=== PATIENT | male | born 1980 | race Hispanic/Latino ===

== ENCOUNTER 2022-02-22 07:13 | Emergency (ER) | payer OTHER ==
--- OUTSIDE RECORDS SUMMARY | 2022-02-22 07:16 | XMS REPORT | Continuity of Care Document ---
:1980 Author Organization [facility] t Address [address] [place] [address] [address] [place] [address] Care Team Providers Name Role Phone Dain Corona Lainez Primary Care Physician LINDA_Gurinder Attending Clinician Unavailable Alexis Mckeon Attending Clinician [phone] Minerva Kern RN Attending Clinician Unavailable Only, Ang Db Test Attending Clinician Unavailable Angely Morales MD Attending Clinician Nydia Aguiar Attending Clinician CHERYL HANNA Attending Clinician Unavailable Lab, Adc Fam Pob I Attending Clinician Unavailable Giovanna Levine Attending Clinician GIOVANNA ARRIOLA Attending Clinician Unavailable Kimberly Mcmanus Attending Clinician KIMBERLY CORLEY Attending Clinician Unavailable LINDA_Gurinder Admitting Clinician Unavailable Payers Payer Name Policy Type Policy Number Effective Date Expiration Date S [facility] [id number] (PPO) Problems Condition Condition Condition Status Onset Resolution Last Treating Co mments Source Name Details Category Date Date Treatment Clinician Date Other Other Disease Active Univers malaise malaise 6-17 ity of and and 00:00: [place] fatigue fatigue 00 Medical Branch Screening Screening Disease Active Uni vers for other for other 6-17 ity of and and 00:00: [place] unspecifie unspecifie 00 Me dical d d Branch endocrine, endocrine, nutritiona nutritiona l, l, metabolic, metabolic, and and immunity immunity disorders disorders Loss of Loss of Disease Active Univers weight weight 09-04 ity of 00:00: [place] [facility] [place] Obesity Obesity Disease Active Overview: Univ ers 09-04 Formattin ity of 00:00: g of this note Medical might be Branch different from the original. ICD10 Diagnosis Term Front Counter Clerk Utility Allergies, Adverse Reactions, Alerts Allergy Allergy Status Severity Reaction(s) Onset Inactive Treating Comm ents Source Name Type Date Date Clinician NO KNOWN Drug Active Univers ALLERGIE Class ity of S [facility] Social History Social Habit Start Date Stop Date Quantity Comments Source Exposure to Yes [facility] SARS-CoV-2 [facility] (event) Branch Alcohol intake 2012-09-04 2012-09-04 Current University of 00:00:00 00:00:00 non-drinker of [facility] alcohol Branch (finding) Sex Ass[birth year] At [birth year] Universit y of 00:00:00 00:00:00 [facility] Smoking Status Start Date Stop Date Source Never Smoker [facility] Medications Ordered Filled Start Stop Current Ordering Indication Dosage Frequency Signature Comments Components Source Medication Medication Date Date Medication? Clinician (SIG) Name Name B12 1ml IM B12 1ml IM 2020-03 No B12 1ml IM [place] Q weekly Q weekly 2-21 Q weekly Com [facility] Yes Take by [facility] ers (KEFLEX 6-30 mouth. ity of ORAL) 12:17: [address] CEPHALEXIN Yes Take by [facility] ers (KEFLEX 6-30 mouth. ity of ORAL) 12:17: [address] CEPHALEXIN Yes Take by [facility] ers (KEFLEX 6-30 mouth. ity of ORAL) 12:17: [address] CEPHALEXIN Yes Take by [facility] ers (KEFLEX 6-30 mouth. ity of ORAL) 12:17: [address] CEPHALEXIN Yes Take by [facility] ers (KEFLEX 6-30 mouth. ity of ORAL) 12:17: [address] CEPHALEXIN Yes Take by [facility] ers (KEFLEX 6-30 mouth. ity of ORAL) 12:17: [place] 09 Medical Branch acetaminoph 2017-0 Yes 1{tbl} Take 1 Un marcos en-codeine 6-30 tablet by ity of 300-30 mg 00:00: mouth [place] tablet 00 every 6 Medical (six) Branch hours as needed for Pain (scale 4-6) for up to 20 doses. proMETHazin 2017-0 Yes 25mg Take 1 Univ ers e 25 mg 6-30 tablet by ity of tablet 00:00: mouth [place] 00 every 6 Medical (six) Branch hours as needed for Nausea and Vomiting (N/V) for up to 12 doses. tamsulosin 2017-0 Yes .4mg Take 1 Unive rs 0.4 mg 24 6-30 capsule by ity of hr capsule 00:00: mouth at [place] as 00 bedtime. Medical Branch acetaminoph 2017-0 Yes 1{tbl} Take 1 Un marcos en-codeine 6-30 tablet by ity of 300-30 mg 00:00: mouth [place] tablet 00 every 6 Medical (six) Branch hours as needed for Pain (scale 4-6) for up to 20 doses. proMETHazin 2017-0 Yes 25mg Take 1 Univ ers e 25 mg 6-30 tablet by ity of tablet 00:00: mouth [place] 00 every 6 Medical (six) Branch hours as needed for Nausea and Vomiting (N/V) for up to 12 doses. tamsulosin 2017-0 Yes .4mg Take 1 Unive rs 0.4 mg 24 6-30 capsule by ity of hr capsule 00:00: mouth at [place] as 00 bedtime. Medical Branch acetaminoph 2017-0 Yes 1{tbl} Take 1 Un marcos en-codeine 6-30 tablet by ity of 300-30 mg 00:00: mouth [place] tablet 00 every 6 Medical (six) Branch hours as needed for Pain (scale 4-6) for up to 20 doses. proMETHazin 2017-0 Yes 25mg Take 1 Univ ers e 25 mg 6-30 tablet by ity of tablet 00:00: mouth [place] 00 every 6 Medical (six) Branch hours as needed for Nausea and Vomiting (N/V) for up to 12 doses. tamsulosin 2017-0 Yes .4mg Take 1 Unive rs 0.4 mg 24 6-30 capsule by ity of hr capsule 00:00: mouth at [place] as 00 bedtime. Medical Branch acetaminoph 2017-0 Yes 1{tbl} Take 1 Un marcos en-codeine 6-30 tablet by ity of 300-30 mg 00:00: mouth [place] tablet 00 every 6 Medical (six) Branch hours as needed for Pain (scale 4-6) for up to 20 doses. proMETHazin 2017-0 Yes 25mg Take 1 Univ ers e 25 mg 6-30 tablet by ity of tablet 00:00: mouth [place] 00 every 6 Medical (six) Branch hours as needed for Nausea and Vomiting (N/V) for up to 12 doses. tamsulosin 2017-0 Yes .4mg Take 1 Unive rs 0.4 mg 24 6-30 capsule by ity of hr capsule 00:00: mouth at [place] as 00 bedtime. Medical Branch acetaminoph 2017-0 Yes 1{tbl} Take 1 Un marcos en-codeine 6-30 tablet by ity of 300-30 mg 00:00: mouth [place] tablet 00 every 6 Medical (six) Branch hours as needed for Pain (scale 4-6) for up to 20 doses. proMETHazin 2017-0 Yes 25mg Take 1 Univ ers e 25 mg 6-30 tablet by ity of tablet 00:00: mouth [place] 00 every 6 Medical (six) Branch hours as needed for Nausea and Vomiting (N/V) for up to 12 doses. tamsulosin 2017-0 Yes .4mg Take 1 Unive rs 0.4 mg 24 6-30 capsule by ity of hr capsule 00:00: mouth at [place] as 00 bedtime. Medical Branch acetaminoph 2017-0 Yes 1{tbl} Take 1 Un marcos en-codeine 6-30 tablet by ity of 300-30 mg 00:00: mouth [place] tablet 00 every 6 Medical (six) Branch hours as needed for Pain (scale 4-6) for up to 20 doses. proMETHazin 2017-0 Yes 25mg Take 1 Univ ers e 25 mg 6-30 tablet by ity of tablet 00:00: mouth [place] 00 every 6 Medical (six) Branch hours as needed for Nausea and Vomiting (N/V) for up to 12 doses. tamsulosin 2017-0 Yes .4mg Take 1 Unive rs 0.4 mg 24 6-30 capsule by ity of hr capsule 00:00: mouth at [place] as 00 bedtime. Medical Branch esomeprazol Yes 20mg Take 20 mg Univers e (NEXIUM) 6-17 by mouth ity o f 20 mg 18:33: daily [place] capsule 05 before a Medical meal. Branch esomeprazol Yes 20mg Take 20 mg Univers e (NEXIUM) 6-17 by mouth ity o f 20 mg 18:33: daily [place] capsule 05 before a Medical meal. Branch esomeprazol Yes 20mg Take 20 mg Univers e (NEXIUM) 6-17 by mouth ity o f 20 mg 18:33: daily [place] capsule 05 before a Medical meal. Branch esomeprazol Yes 20mg Take 20 mg Univers e (NEXIUM) 6-17 by mouth ity o f 20 mg 18:33: daily [place] capsule 05 before a Medical meal. Branch esomeprazol Yes 20mg Take 20 mg Univers e (NEXIUM) 6-17 by mouth ity o f 20 mg 18:33: daily [place] capsule 05 before a Medical meal. Branch esomeprazol Yes 20mg Take 20 mg Univers e (NEXIUM) 6-17 by mouth ity o f 20 mg 18:33: daily [place] capsule 05 before a Medical meal. Branch colchicine colchicine No colchicine [place] 0.6 mg 0.6 mg 0.6 mg Communi tablet TAKE tablet TAKE tablet ty ONE (1) ONE (1) TAKE ONE Hospi ta TABLET(S) TABLET(S) (1) l BY MOUTH BY MOUTH TABLET(S) Cl inics THREE TIMES THREE TIMES BY MOUTH A DAY. A DAY. THREE TIMES A DAY. diazepam 5 diazepam 5 No diazepam 5 [place] mg tablet mg tablet mg tablet Communi TAKE 1 TAKE 1 TAKE 1 ty TABLET BY TABLET BY TABLET BY Hospita MOUTH AT MOUTH AT MOUTH AT l BEDTIME BEDTIME BEDTIME Clinic s rosuvastati rosuvastati No rosuvastat [place] n 5 mg n 5 mg in 5 mg Communi tablet TAKE tablet TAKE tablet ty 1 TABLET BY 1 TABLET BY TAKE 1 Hospita MOUTH EVERY MOUTH EVERY TABLET BY l EVENING EVENING MOUTH Clinics EVERY EVENING tadalafil tadalafil No tadalafil [place] 20 mg 20 mg 20 mg Communi tablet tablet tablet ty (pulmonary (pulmonary (pulmonary Hospita hypertensio hypertensio hypertensi l n) TAKE ONE n) TAKE ONE on) TAKE Clinics (1) (1) ONE (1) TABLET(S) TABLET(S) TABLET(S) BY MOUTH BY MOUTH BY MOUTH ONCE A DAY ONCE A DAY ONCE A DAY NEEDED. NEEDED. NEEDED. allopurinol allopurinol No allopurino [place] 300 mg 300 mg l 300 mg Communi tablet TAKE tablet TAKE tablet ty ONE (1) ONE (1) TAKE ONE Hospi ta TABLET(S) TABLET(S) (1) l BY MOUTH BY MOUTH TABLET(S) Cl inics EVERY EVERY BY MOUTH MORNING. MORNING. EVERY MORNING. cefuroxime cefuroxime No cefuroxime [place] axetil 500 axetil 500 axetil 500 Communi mg tablet mg tablet mg tablet ty TAKE 1 TAKE 1 TAKE 1 Hospita TABLET BY TABLET BY TABLET BY l MOUTH TWICE MOUTH TWICE MOUTH Clinics DAILY DAILY TWICE DAILY cholecalcif cholecalcif No cholecalci [place] marbella marbella ferol Communi (vitamin (vitamin (vitamin ty D3) 1,250 D3) 1,250 D3) 1,250 Hospita mcg (50,000 mcg (50,000 mcg l unit) unit) (50,000 Clinics capsule capsule unit) TAKE ONE TAKE ONE capsule CAPSULE BY CAPSULE BY TAKE ONE MOUTH EVERY MOUTH EVERY CAPSULE BY WEEK WEEK MOUTH EVERY WEEK colchicine colchicine No colchicine [place] 0.6 mg 0.6 mg 0.6 mg Communi tablet TAKE tablet TAKE tablet ty ONE (1) ONE (1) TAKE ONE Hospi ta TABLET(S) TABLET(S) (1) l BY MOUTH BY MOUTH TABLET(S) Cl inics THREE TIMES THREE TIMES BY MOUTH A DAY. A DAY. THREE TIMES A DAY. diazepam 5 diazepam 5 No diazepam 5 [place] mg tablet mg tablet mg tablet Communi TAKE 1 TAKE 1 TAKE 1 ty TABLET BY TABLET BY TABLET BY Hospita MOUTH AT MOUTH AT MOUTH AT l BEDTIME BEDTIME BEDTIME Clinic s metformin metformin No metformin [place] 500 mg 500 mg 500 mg Communi tablet TAKE tablet TAKE tablet ty 1 TABLET BY 1 TABLET BY TAKE 1 Hospita MOUTH TWICE MOUTH TWICE TABLET BY l DAILY DAILY MOUTH Clinics TWICE DAILY rosuvastati rosuvastati No rosuvastat [place] n 5 mg n 5 mg in 5 mg Communi tablet TAKE tablet TAKE tablet ty 1 TABLET BY 1 TABLET BY TAKE 1 Hospita MOUTH EVERY MOUTH EVERY TABLET BY l EVENING EVENING MOUTH Clinics EVERY EVENING tadalafil tadalafil No tadalafil [place] 20 mg 20 mg 20 mg Communi tablet tablet tablet ty (pulmonary (pulmonary (pulmonary Hospita hypertensio hypertensio hypertensi l n) TAKE ONE n) TAKE ONE on) TAKE Clinics (1) (1) ONE (1) TABLET(S) TABLET(S) TABLET(S) BY MOUTH BY MOUTH BY MOUTH ONCE A DAY ONCE A DAY ONCE A DAY NEEDED. NEEDED. NEEDED. testosteron testosteron No 12pelle testostero [place] e 200 mg e 200 mg t(s) ne 200 mg Co mmuni implant implant implant ty pellet Take pellet Take pellet Hospita 12 pellets 12 pellets Take 12 l by by pellets by Clinics implantatio implantatio implantati n route. n route. on route. allopurinol allopurinol No allopurino [place] 300 mg 300 mg l 300 mg Communi tablet TAKE tablet TAKE tablet ty ONE (1) ONE (1) TAKE ONE Hospi ta TABLET(S) TABLET(S) (1) l BY MOUTH BY MOUTH TABLET(S) Cl inics EVERY EVERY BY MOUTH MORNING. MORNING. EVERY MORNING. cefuroxime cefuroxime No cefuroxime [place] axetil 500 axetil 500 axetil 500 Communi mg tablet mg tablet mg tablet ty TAKE 1 TAKE 1 TAKE 1 Hospita TABLET BY TABLET BY TABLET BY l MOUTH TWICE MOUTH TWICE MOUTH Clinics DAILY DAILY TWICE DAILY Immunizations Ordered Filled Immunization Date Status Comments [facility] e Immunization Name Name SARS-COV-2 COVID-19 2020-06-17 Completed Unive rsity of PFIZER VACCINE 00:00:00 [facility] SARS-COV-2 COVID-19 2020-06-17 Completed Unive rsity of PFIZER VACCINE 00:00:00 [facility] SARS-COV-2 COVID-19 2020-06-17 Completed Unive rsity of PFIZER VACCINE 00:00:00 [facility] SARS-COV-2 COVID-19 2020-06-17 Completed Unive rsity of PFIZER VACCINE 00:00:00 [facility] SARS-COV-2 COVID-19 2020-05-27 Completed Unive rsity of PFIZER VACCINE 00:00:00 [facility] SARS-COV-2 COVID-19 2020-05-27 Completed Unive rsity of PFIZER VACCINE 00:00:00 [facility] SARS-COV-2 COVID-19 2020-05-27 Completed Unive rsity of PFIZER VACCINE 00:00:00 [facility] SARS-COV-2 COVID-19 2020-05-27 Completed Unive rsity of PFIZER VACCINE 00:00:00 [facility] Vital Signs Vital Name Observation Time Observation Value Comments Source BP Diastolic 2021-03-17 00:00:00 96 mm[Hg] [facility] Height 2021-03-17 00:00:00 72 [in_i] [facility] s BMI (Body Mass 2021-03-17 00:00:00 45.6 kg/m2 [facility] BP Systolic 2021-03-17 00:00:00 159 mm[Hg] [facility] s Body Weight 2021-03-17 00:00:00 5376 [oz_av] [facility] s BP Diastolic 2021-02-17 00:00:00 92 mm[Hg] [facility] s Height 2021-02-17 00:00:00 72 [in_i] [facility] s BMI (Body Mass 2021-02-17 00:00:00 44.8 kg/m2 [facility] BP Systolic 2021-02-17 00:00:00 143 mm[Hg] [facility] s Body Weight 2021-02-17 00:00:00 5280 [oz_av] [facility] s Procedures This patient has no known procedures. Plan of Care Planned Activity Planned Date Details Comments Source Diagnostic Test 2021-02-17 estradiol, serum [facility] Pending 00:00:00 [code = estradiol, [facility] serum] Diagnostic Test 2021-02-17 testosterone, free + [facility] Pending 00:00:00 total, serum [code = [facility] testosterone, free + total, serum] Diagnostic Test 2021-02-17 TSH + free T4, serum [facility] Pending 00:00:00 [code = TSH + free Hospital Clinics T4, serum] Diagnostic Test 2021-02-17 T3, free, serum or [place] [facility] Pending 00:00:00 plasma [code = T3, Hospital Clinics free, serum or plasma] Diagnostic Test 2021-02-17 thyroid peroxidase [place] [facility] Pending 00:00:00 (tpo) Ab, serum Hospital Cli nics [code = thyroid peroxidase (tpo) Ab, serum] Diagnostic Test 2021-02-17 vitamin D, [place] [facility] Pending 00:00:00 25-hydroxy, total, Hospital Clinics serum [code = vitamin D, 25-hydroxy, total, serum] Diagnostic Test 2021-02-17 vitamin B12 + [place] [facility] Pending 00:00:00 folate, serum or Hospital Cl inics blood [code = vitamin B12 + folate, serum or blood] Diagnostic Test 2021-02-17 CBC w/ auto diff [place] [facility] Pending 00:00:00 [code = CBC w/ auto Hospital Clinics diff] Diagnostic Test 2021-02-17 CMP, serum or plasma [facility] Pending 00:00:00 [code = CMP, serum Hospital Clinics or plasma] Diagnostic Test 2021-02-17 PSA, serum or plasma [facility] Pending 00:00:00 [code = PSA, serum Hospital Clinics or plasma] Encounters Start End Encounter Admission Attending Care Care Encounter Source Date/Time Date/Time Type Type Clinicians Facility Department ID 2021-07-02 Outpatient [facility] [id number] Common 13:19:02 [id number] [facility] 2021-05-23 2021-05-23 Outpatient [facility] [id number] [place] 02:27:00 02:27:00 0305 [facility] i [facility] 2021-05-15 2021-05-15 Outpatient [facility] [id number] [place] 06:52:00 06:52:00 0225 Commun i ty [facility] 2021-04-18 2021-04-18 Outpatient [facility] [id number] [place] 04:47:00 04:47:00 0129 Commun i ty Hospita [facility] Clinics 2021-03-17 2021-03-17 Outpatient SISSON_Gurinder [facility] 2020 [place] 02:58:00 02:58:00 1228 Commun i ty Hospita l Clinics 2021-03-17 2021-03-17 Outpatient Linda [facility] [id number] 00:00:00 00:00:00 Alexis [id number] 2021-03-17 [facility] [place] [id number] [place] 00:00:00 00:00:00 Linda, [facility] MSN, CADET DECK, Hospital - ty LABORER-C: [address] [place] [facility] [address], [facility] [address], [place]Lizandro [place], [place] MSN, LABORER-C [id number] , Ph. 2021-03-14 2021-03-14 Outpatient AJITHSON_Gurinder [facility] 2020 [place] 03:02:00 03:02:00 1225 Commun i ty Hospita l Clinics 2021-03-10 2021-03-10 Outpatient SISSON_Gurinder [facility] 2020 [place] 02:52:00 02:52:00 1221 Commun i ty Hospita l Clinics 2021-03-10 2021-03-10 [facility] [place] [id number] [place] 00:00:00 00:00:00 Linda [facility] MSN, CADET DECK, Hospital - ty LABORER-C: [address] [place] [facility] [address], [facility] [address], [place]Liz[place], [place] MSN, LABORER-C [id number] , Ph. 2021-02-17 2021-02-17 Outpatient [facility]C [facility] 2020 [place] 03:55:00 03:55:00 1130 Commun i ty Hospita l Clinics 2021-02-17 2021-02-17 [facility] [id number] [place] 00:00:00 00:00:00 Linda, [facility] MSN, CADET DECK, Hospital - ty LABORER-C: [address] [place] [facility] [address], [facility] [address], Linda [place], [place] MSN, LABORER-C [id number] , Ph. 2021-02-17 2021-02-17 [id number] 00:00:00 00:00:00 Alexis [id number] 2021-01-28 2021-01-28 [facility] [id number] [place] 04:05:00 04:05:00 1110 Commun i ty Hospita l Clinics 2020-11-24 2020-11-24 Telephone MARVIN Kern [id number] Univers 00:00:00 00:00:00 Minerva WEIR [id number] i ty [facility] [id number] [place] [id number] [address] 2020-11-23 2020-11-23 Laboratory Only, Ang Db Test [facility] 1.2.8 [id number] [id number] Univers 18:03:32 18:12:28 Only Andrew Angely [employer] [id number] [place] [id number] Joanthan as Timmy?Blea [phone] Ne dical [facility] [address] [place] [facility] 2020-11-23 2020-11-23 Outpatient R [facility] [id number] Univers 13:15:00 13:15:00 ity [facility] 2020-11-22 2020-11-22 Laboratory Only, Ang Db Test [facility] 1.2.8 40.114 [id number] Univers 12:16:55 12:26:55 Only Johnathan Nydia [facility] [id number] [place] [id number] [place] Timmy?Blea [phone] Ne dical kney [address] [facility] 2020-11-22 2020-11-22 Outpatient R [facility] [id number] Univers 12:20:00 12:20:00 ity [facility] 2020-06-17 2020-06-17 Outpatient R CYNDI [facility] [id number] Univers 11:20:00 11:20:00 CHERYL ity [facility] 2020-05-27 2020-05-27 Outpatient R CYNDI [facility] [id number] Univers 10:50:00 10:50:00 CHERYL ity [facility] 2020-05-27 2020-05-27 Outpatient R CYNDI [facility] [id number] Univers 10:50:00 10:50:00 [facility] 2020-05-18 Outpatient R CYNDI [facility] [id number] Univers 13:35:00 13:35:00 CHERYL [facility] 2020-04-14 2020-04-14 Laboratory Lab, [facility] 1.2. [id number] [id number] Univers 09:37:21 09:57:21 Only Lorraine [facility] [id number] [place] [id number] [place] as Professio [phone] Ne dical nal 044 [facility] 2020-04-14 2020-04-14 Outpatient R LORRAINE [facility] [id number] Univers 09:40:00 09:40:00 GIOVANNA ity [facility] 2019-10-02 2019-10-02 Laboratory Lab, [facility] 1.2. [id number] [id number] Univers 11:05:46 11:25:46 Only Barney [facility] [id number] [place] [id number] [place] as Professio [phone] Ne dical nal 044 [facility] 2019-10-02 2019-10-02 Outpatient R BARNEY [facility] [id number] Univers 11:00:00 11:00:00 KIMBERLY ity [facility] 2019-10-02 2019-10-02 Nhi CORLEY [facility] [id number] Univers 11:00:00 11:00:00 KIMBERLY jeter [facility] Results This patient has no known results.
[2022-02-22] MEDS ORDERED: NA CHLORIDE 0.9% 1,000 ML ONE (08:03)
[2022-02-22 08:27] LABS: Urine Blood Negative (Negative); Urine Glucose Negative (Negative); Urine Protein Negative (Negative); Urine Specific Gravity 1.015 (1.005-1.030)
[2022-02-22 08:52] LABS: Absolute Lymphocytes (CBC) 2.9 K/uL (0.7-4.9); Hematocrit 42.8 % (39.6-49.0); Lymphocytes % 40.8 % (15.3-44.8); MCV 92.5 fL (80-100); MPV 8.7 fL (7.6-11.3); RBC Red Blood Cell Count 4.63 M/uL (4.33-5.43)
[2022-02-22 09:08] LABS: Albumin 4.1 g/dL (3.4-5.0); Potassium 4.1 mmol/L (3.5-5.1); Protein, Total 8.3 g/dL (6.4-8.2)
[2022-02-22] MEDS ORDERED: NA CHLORIDE 0.9% 500 ML ONE (10:09)
--- NOTE | 2022-02-22 10:57 | ER ---
Nurse's Notes [facility] Name: Vlad Miles Age: 41 yrs Sex: Male : 1980 Arrival Date: 02/22/2022 Time: 07:17 Bed 8 Private MD: Diagnosis: Polydipsia Presentation: 02/22 07:36 Chief complaint: Patient states: Feeling thirsty and foggy x 2 weeks,m stopped taking jl7 metformin 1 week ago, BGL 124 in triage. Started a low card diet 6 months ago. Coronavirus screen: Vaccine status: Patient reports receiving the 2nd dose of the covid vaccine. At this time, the client does not indicate any symptoms associated with coronavirus-19. Ebola Screen: No symptoms or risks identified at this time. Initial Sepsis Screen: Does the patient meet any 2 criteria? No. Patient's initial sepsis screen is negative. Does the patient have a suspected source of infection? No. Patient's initial sepsis screen is negative. Risk Assessment: Do you want to hurt yourself or someone else? Patient reports no desire to harm self or others. Onset of symptoms is unknown. 07:36 Method Of Arrival: Ambulatory jl7 07:36 Acuity: SHELLEY 3 jl7 Triage Assessment: 07:37 General: Appears in no apparent distress. uncomfortable, Behavior is calm, cooperative, jl7 appropriate for age. Pain: Denies pain. Historical: - Allergies: 07:37 No Known Allergies; jl7 - Home Meds: 07:37 metformin 500 mg Oral tab [Active]; Diazepam Oral [Active]; jl7 - PMHx: 07:37 Diabetes mellitus; Anxiety; jl7 - Immunization history:: Adult Immunizations up to date. - Social history:: Smoking status: Patient denies any tobacco usage or history of. Screenin:58 Abuse screen: Denies threats or abuse. Denies injuries from another. Nutritional bp screening: No deficits noted. Tuberculosis screening: No symptoms or risk factors identified. Fall Risk None identified. Assessment: 07:45 General: SEE TRIAGE NOTE. bp 09:30 Reassessment: No changes from previously documented assessment. Patient and/or family bp updated on plan of care and expected duration. Pain level reassessed. 11:12 Reassessment: SD HOME. bp Vital Signs: 07:36 BP 137 / 86; Pulse 83; Resp 17; Temp 97.6; Pulse Ox 100% ; Weight 138.35 kg; Height 5 jl7 ft. 11 in. (180.34 cm); Pain 0/10; 08:00 BP 137 / 90; Pulse 79; Resp 16; Pulse Ox 98% ; bp 09:00 BP 138 / 88; Pulse 71; Resp 16; Pulse Ox 99% ; bp 10:00 BP 137 / 98; Pulse 76; Resp 16; Pulse Ox 100% ; bp 11:00 BP 135 / 89; Pulse 77; Resp 16; Pulse Ox 99% ; bp 07:36 Body Mass Index 42.54 (138.35 kg, 180.34 cm) jl7 ED Course: 07:17 Patient arrived in ED. as 07:25 Juno Ashley MD is Attending Physician. kdr 07:37 Triage completed. jl7 07:37 Arm band placed on right wrist. jl7 07:52 Brenda Arenas RN is Primary Nurse. ha1 07:52 Primary Nurse role handed off by Brenda Arenas RN bp 07:52 Volodymyr Huff, LENIN is Primary Nurse. bp 07:58 Patient has correct armband on for positive identification. Bed in low position. Call bp light in reach. Side rails up X2. 08:15 Inserted saline lock: 20 gauge in right antecubital area, using aseptic technique. bp Blood collected. 11:00 No provider procedures requiring assistance completed. IV discontinued, intact, bp bleeding controlled, No redness/swelling at site. Pressure dressing applied. Administered Medications: 08:15 Drug: NS 0.9% 1000 ml Route: IV; Rate: 1 bolus; Site: right antecubital; bp 11:14 Follow up: IV Status: Completed infusion; IV Intake: 1000ml bp 09:45 Drug: NS 0.9% 500 ml Route: IV; Rate: bolus; Site: right antecubital; bp 11:14 Follow up: IV Status: Completed infusion; IV Intake: 500ml bp Medication: 11:00 VIS not applicable for this client. bp Intake: 11:14 IV: 500ml; Total: 500ml. bp 11:14 IV: 1000ml; Total: 1500ml. bp Outcome: 10:56 Discharge ordered by . kdr 11:00 Discharged to home ambulatory. bp 11:00 Condition: stable 11:00 Discharge instructions given to patient, Instructed on discharge instructions, follow up and referral plans. Demonstrated understanding of instructions, follow-up care. 11:15 Patient left the ED. bp Signatures: Juno Ashley MD MD kdr Martinez, Amelia as Leal, Jahala RN RN jl7 Volodymyr Huff RN RN bp Brenda Arenas, RN RN ha1
--- NOTE | 2022-02-22 10:57 | EDPHYS ---
Physician Documentation [facility] Name: Vlad Miles Age: 41 yrs Sex: Male : 1980 Arrival Date: 02/22/2022 Time: 07:17 Bed 8 Private MD: ED Physician Juno Ashley HPI: 02/22 07:52 This 41 yrs old Male presents to ER via Ambulatory with complaints of kdr dehydration. 07:52 Patient states that for the past 2 weeks he has felt poorly. He feels like he has been kdr lethargic and weak. He also feels that he has had brain fog during that period of time. He had been taking metformin for blood sugar control but stopped taking it sometime ago. He is since been controlling his blood sugar with his diet. About 6 months ago he started a low-carb diet. He does admit to Martha dyspnea and subsequent polyuria associated with drinking. Denies urine beyond what he has been drinking. . Severity of symptoms: At their worst the symptoms were mild in the emergency department the symptoms are unchanged. The patient has experienced similar episodes in the past, today's symptoms are similar. The patient has not recently seen a physician. Historical: - Allergies: 07:37 No Known Allergies; jl7 - Home Meds: 07:37 metformin 500 mg Oral tab [Active]; Diazepam Oral [Active]; jl7 - PMHx: 07:37 Diabetes mellitus; Anxiety; jl7 - Immunization history:: Adult Immunizations up to date. - Social history:: Smoking status: Patient denies any tobacco usage or history of. ROS: 07:52 Constitutional: Negative for fever, chills, and weight loss, Eyes: Negative for injury, kdr pain, redness, and discharge, ENT: Negative for injury, pain, and discharge, Neck: Negative for injury, pain, and swelling, Cardiovascular: Negative for chest pain, palpitations, and edema, Respiratory: Negative for shortness of breath, cough, wheezing, and pleuritic chest pain, Abdomen/GI: Negative for abdominal pain, nausea, vomiting, diarrhea, and constipation, Back: Negative for injury and pain, : Negative for injury, bleeding, discharge, and swelling, MS/Extremity: Negative for injury and deformity, Skin: Negative for injury, rash, and discoloration, Neuro: Negative for headache, weakness, numbness, tingling, and seizure activity. Psych: Negative for depression, anxiety, suicide ideation, homicidal ideation, and hallucinations, Allergy/Immunology: Negative for hives, rash, and allergies, Hematologic/Lymphatic: Negative for swollen nodes, abnormal bleeding, and unusual bruising. 07:52 Endocrine: Positive for polydipsia, polyuria. Vital Signs: 07:36 BP 137 / 86; Pulse 83; Resp 17; Temp 97.6; Pulse Ox 100% ; Weight 138.35 kg; Height 5 jl7 ft. 11 in. (180.34 cm); Pain 0/10; 08:00 BP 137 / 90; Pulse 79; Resp 16; Pulse Ox 98% ; bp 09:00 BP 138 / 88; Pulse 71; Resp 16; Pulse Ox 99% ; bp 10:00 BP 137 / 98; Pulse 76; Resp 16; Pulse Ox 100% ; bp 11:00 BP 135 / 89; Pulse 77; Resp 16; Pulse Ox 99% ; bp 07:36 Body Mass Index 42.54 (138.35 kg, 180.34 cm) jl7 MDM: 10:09 Data reviewed: vital signs, nurses notes, lab test result(s). Counseling: I had a kdr detailed discussion with the patient and/or guardian regarding: the historical points, exam findings, and any diagnostic results supporting the discharge/admit diagnosis, lab results, the need for outpatient follow up. 10:56 Patient medically screened. [facility] 02/22 07:43 Order name: Glucose, Ancillary Testing; Complete Time: 07:50 EDMS 02/22 07:51 Order name: CBC with Diff; Complete Time: 09:23 [facility] 02/22 07:51 Order name: Comprehensive Metabolic Panel; Complete Time: 09:23 [facility] 02/22 07:54 Order name: Strep; Complete Time: 09:23 [facility] 02/22 08:27 Order name: Urine Dipstick-Ancillary; Complete Time: 08:48 EDMS 02/22 07:51 Order name: Urine Dipstick-Ancillary (obtain specimen); Complete Time: 08:32 [facility] 02/22 08:51 Order name: SARS-COV-2 RT PCR; Complete Time: 09:38 EDMS 02/22 08:58 Order name: Throat Culture EDMS Administered Medications: 08:15 Drug: NS 0.9% 1000 ml Route: IV; Rate: 1 bolus; Site: right antecubital; bp 11:14 Follow up: IV Status: Completed infusion; IV Intake: 1000ml bp 09:45 Drug: NS 0.9% 500 ml Route: IV; Rate: bolus; Site: right antecubital; bp 11:14 Follow up: IV Status: Completed infusion; IV Intake: 500ml bp Disposition Summary: 02/22/22 10:56 Discharge Ordered Location: Home kdr Problem: an ongoing problem kdr Symptoms: have improved kdr Condition: Stable kdr Diagnosis - Polydipsia kdr Followup: kdr - With: Private Physician - When: 2 - 3 days - Reason: If symptoms return, Further diagnostic work-up, Recheck today's complaints, Continuance of care, Re-evaluation by your physician Discharge Instructions: - Discharge Summary Sheet kdr - Living With Diabetes kdr - Diabetes Basics kdr Forms: - Medication Reconciliation Form kdr - Thank You Letter kdr Signatures: Dispatcher [employer] EDJuno Scott MD MD kdr Stacey Salcido RN RN jl7 Volodymyr Huff RN RN bp Corrections: (The following items were deleted from the chart) 08:51 07:55 SARS-COV-2 Antigen Rapid+I.LAB.BRZ ordered. EDWY EDMS
[2022-02-22 11:43] VITALS: TEMP 97.6
[2022-02-22 12:00] VITALS: BP 135/89; O2SAT 99
== END 2022-02-22 11:15 | disposition home or self-care (01) ==
LOC: ER 07:13
DX: R63.1 Polydipsia (principal); E11.9 Type 2 diabetes mellitus without complications; F41.9 Anxiety disorder, unspecified; Z20.822 Contact with and (suspected) exposure to COVID-19
CPT/HCPCS: 96361; 87070; 85025; 36415; 82947; 87081; 81003; 80053; 96360; 99284; U0003; J7040; J7030